=== PATIENT | male | born 1995 | race Caucasian/White ===

== ENCOUNTER 2019-08-11 18:33 | Emergency (ER) | payer OTHER, SELFPAY ==
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
[2019-08-11 19:24] LABS: Basophils Absolute Auto 0.1 K/mm3 (0.0-0.1); Basophils Percent Auto 0.9 % (0.2-1.2); Eosinophils Absolute Auto 0.3 K/mm3 (0-0.3); Eosinophils Percent Auto 4.9 % (0-4.4); Hematocrit 45.2 % (42.0-52.0); Hemoglobin 15.2 g/dL (14.0-18.0); Immature Granulocyte Absolute 0.04 K/mm3 (0.00-0.031); Immature Granulocyte Percent A 0.6 % (0-0.5); Lymphocytes Percent Auto 28.9 % (18.3-44.2); Mean Corpuscular HGB Conc 33.6 g/dl (32-36); Mean Corpuscular Hemoglobin 29.9 pg (26-34); Mean Corpuscular Volume 88.8 fl (80-100); Mean Platelet Volume 9.8 fl (7.4-10.4); Monocytes Absolute Auto 0.6 K/mm3 (0.1-0.6); Monocytes Percent Auto 9.7 % (2.6-8.5); Neutrophils Absolute Auto 3.6 K/mm3 (1.3-6.7); Platelet Count Result 267 k/mm3 (150-375); Red Blood Count 5.09 M/mm3 (4.6-6.20); Red Cell Distribution Width 12.8 % (11.5-14.5); White Blood Count 6.6 K/mm3 (4.5-10.0)
[2019-08-11 19:36] LABS: Alanine Aminotransferase 31 U/L (4-50); Albumin Level 4.3 g/dL (3.5-5.1); Alkaline Phosphatase 67 U/L (38-126); Aspartate Amino Transferase 29 U/L (17-59); Bilirubin,Total 0.7 mg/dL (0.2-1.3); Blood Urea Nitrogen 14 mg/dL (9-20); Calcium 9.4 mg/dL (8.4-10.2); Carbon Dioxide 22 mmol/L (22-30); Chloride 101 mmol/L (98-107); Estimated CRCL calculation 145 ml/min; Estimated Glomerular Filt Rate > 60; Glucose 121 mg/dL (75-110); Potassium 4.1 mmol/L (3.4-5.0); Sodium 137 mmol/L (137-145)
[2019-08-11 19:59] LABS: Ethanol < 10 mg/dL (<10)
[2019-08-11 20:06] LABS: Thyroid Stimulating Hormone 0.651 uIU/mL (0.465-4.680)
[2019-08-11 20:33] LABS: Add Urine Microscopic? YES; Amorphous Sediment Urine Few; Appearance Urine Clear (Clear); Bacteria Urine Trace /hpf; Bilirubin Urine Negative (Negative); Blood Urine Negative (Negative); Color Urine Yellow (Yellow); Glucose Urine UA Negative (Negative); Ketones Urine Negative (Negative); Leukocyte Esterase Ur Negative LEU/UL (Negative); Mucus Urine Rare /lpf; Nitrate Urine Negative (Negative); Protein Urine Negative (Negative); WBC Urine 0-3 /hpf
[2019-08-11 20:47] LABS: Amphetamine Screen Urine Positive (Negative); Barbiturate Screen Urine Negative (Negative); Benzodiazepines Screen Urine Negative (Negative); Cannabinoid Screen Urine Negative (Negative); Cocaine Screen Urine Negative (Negative); Methadone Screen Urine Negative (Negative); Opiate Screen Urine Negative (Negative); Phencyclidine Screen Urine Negative (Negative)
--- NOTE | 2019-08-11 20:52 | PC.NURSE ---
CALLED [facility] [phone] THEY WILL SEND SOMEONE OUT TO EVALUATE PT
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
--- NOTE | 2019-08-11 21:07 | PC.NURSE ---
This RN went to check on pt and he was crying. When asked what was wrong pts mother states that he is getting restless. Pt then asked if he could leave and said that he had changed his mind. When i stated no he couldnt pt asked why. I explained that since he had made a statement to harm himself he could not leave until he spoke with crisis. Pt was visibly upset with this answer.
[2019-08-11] MEDS: NICOTINE (*PBKC) 21 MG PATCH 1 PATCH TRANSDERM (22:33)
--- NOTE | 2019-08-11 23:35 | PC.NURSE ---
Per Crisis no beds open, will be back in 24 hours but will be looking for placement in the meantime.
[2019-08-12] MEDS: LORAZEPAM 0.5 MG TABLET PO (00:27)
--- NOTE | 2019-08-12 01:14 | PC.NURSE ---
PT EXCEPTED AT [facility], NURSE WILL CALL BACK.
[2019-08-12 02:40] VITALS: BP 105/50; PULSE 65; RESP 16; TEMP 36.6; O2SAT 98
--- NOTE | 2019-08-12 05:00 | PC.NURSE ---
SPOKE WITH ANA PAULA FROM [facility], DR HANNA BE THERE IS AN HOUR, TO LOOK OVER PAPER WORK.
--- NOTE | 2019-08-12 05:18 | PC.NURSE ---
PT SLEEPING IN ROOM
--- NOTE | 2019-08-12 06:08 | PC.NURSE ---
CALLED [facility] TO TRANSPORT PATIENT TO [facility] ([place]....ETA APPROXIMATELY [phone]
[2019-08-12 06:58] VITALS: BP 132/62; PULSE 67; RESP 16; TEMP 37; O2SAT 98
== END 2019-08-12 08:38 | disposition short-term general hospital (02) ==
PROVIDERS: Emergency Provider Emergency Medicine
DX: R45.851 Suicidal ideations (principal); F32.9 Major depressive disorder, single episode, unspecified
CPT/HCPCS: 36415; 80053; 80307; 81001; 84443; 85025; 99285; A9270